=== PATIENT | female | born 1985 | race American Indian/Alaskan Native ===

== ENCOUNTER 2017-11-01 05:59 | Emergency (ER) | payer BC, OTHER ==
[2017-11-01 05:59] VITALS: BMI 23.6
[2017-11-01 06:06] VITALS: PULSE 81
--- NOTE | 2017-11-01 07:28 | ED PDOC ---
Arrival/HPI - General Chief Complaint: ENT Problem Time Seen by Provider: 11/01/17 07:11 Historian: Patient - History of Present Illness Narrative History of Present Illness (Text): 11/01/17 07:12 Zoe Mendez is a 32 year old female, with no significant past medical history, who presents to the Emergency department complaining of a sore throat for past 4 days. Patient notes she was gargling last night and noticed puss at back of throat. Patient denies any associated symptoms or sick contacts. Patient denies any fevers, chills, chest pain, shortness of breath, abdominal pain, nausea, vomiting, diarrhea, back pain, neck pain, urinary symptoms, headache, dizziness , or any other complaint. Time/Duration: Other (last 4 days) Symptom Onset: Gradual Symptom Course: Unchanged Activities at Onset: Light Context: Home Past Medical History - Provider Review Nursing Documentation Reviewed: Yes - Infectious Disease Hx of Infectious Diseases: None - Tetanus Immunization Tetanus Immunization: Unknown - Cardiac Hx Cardiac Disorders: Yes Hx Heart Murmur: Yes - Pulmonary Hx Respiratory Disorders: No - Musculoskeletal/Rheumatological Hx Musculoskeletal Disorders: No - Gastrointestinal Hx Gastrointestinal Disorders: No - Genitourinary/Gynecological Hx Genitourinary Disorders: No - Psychiatric Hx Psychophysiologic Disorder: No Hx Substance Use: No - Anesthesia Hx Anesthesia Reactions: No - Suicidal Assessment Feels Threatened In Home Enviroment: No Family/Social History - Physician Review Nursing Documentation Reviewed: Yes Family/Social History: Unknown Family HX Smoking Status: Never Smoked Hx Alcohol Use: Yes Hx Substance Use: No Hx Substance Use Treatment: No Allergies/Home Meds Allergies/Adverse Reactions: Allergies No Known Allergies Allergy (Verified 07/09/14 11:27) Review of Systems - Physician Review All systems were reviewed & negative as marked: Yes - Review of Systems Constitutional: Normal. absent: Fevers Eyes: Normal ENT: Sore Throat (noticed swelling in back of throat last night). absent: Normal Respiratory: Normal. absent: SOB, Cough Cardiovascular: Normal. absent: Chest Pain Gastrointestinal: Normal. absent: Abdominal Pain, Stool Changes, Constipation, Diarrhea, Nausea, Vomiting Genitourinary Female: Normal. absent: Urine Output Changes, Vaginal Discharge Musculoskeletal: Normal. absent: Arthralgias, Back Pain, Neck Pain, Myalgias Skin: Normal. absent: Rash Neurological: Normal. absent: Headache, Dizziness Endocrine: Normal. absent: Diaphoresis Hemo/Lymphatic: Normal Psychiatric: Normal Physical Exam Vital Signs Reviewed: Yes Vital Signs Temp Pulse Resp BP Pulse Ox 11/01/17 07:34 98 F 81 18 120/71 99 11/01/17 06:06 98.3 F 81 16 117/72 100 Temperature: Afebrile Blood Pressure: Normal Pulse: Regular Respiratory Rate: Normal Appearance: Positive for: Well-Appearing, Non-Toxic Pain Distress: None Mental Status: Positive for: Alert and Oriented X 3 - Systems Exam Head: Present: Atraumatic, Normocephalic Pupils: Present: PERRL Extroacular Muscles: Present: EOMI Conjunctiva: Present: Normal Pharnyx: Present: ERYTHEMA (back of throat), EXUDATE (exudates at back of throat ), Other (some swollen glands in back of neck). No: Normal Neck: Present: Normal Range of Motion Respiratory/Chest: Present: Clear to Auscultation, Good Air Exchange. No: Respiratory Distress, Accessory Muscle Use Cardiovascular: Present: Regular Rate and Rhythm, Normal S1, S2. No: Murmurs Abdomen: No: Tenderness, Distention, Peritoneal Signs Upper Extremity: Present: Normal Inspection. No: Cyanosis, Edema Lower Extremity: Present: Normal Inspection. No: Edema Neurological: Present: GCS=15, CN II-XII Intact, Speech Normal Skin: Present: Warm, Dry, Normal Color. No: Rashes Psychiatric: Present: Alert, Oriented x 3, Normal Insight, Normal Concentration Medical Decision Making ED Course and Treatment: 11/01/17 07:13 Impression: Zoe Mendez is a 32 year old female who presents to the Emergency department for sore throat for last 4 days, after noticing puss at back of throat last night. Plan: -- Amoxicillin -- Throat culture -- Rapid strep group a antigen -- Reassess and disposition Prior Visits: Notes and results from previous visits were reviewed. Progress Notes: 11/01/17 07:13 Additional instructions: Patient to follow up with PMD as directed. - Lab Interpretations Lab Results: Lab Results 11/01/17 06:30: Grp A Beta Strep Ag Negative - Scribe Statement The provider has reviewed the documentation as recorded by the Scribe Marcie Bartholomew All medical record entries made by the Scribe were at my direction and personally dictated by me. I have reviewed the chart and agree that the record accurately reflects my personal performance of the history, physical exam, medical decision making, and the department course for this patient. I have also personally directed, reviewed, and agree with the discharge instructions and disposition. Disposition/Present on Arrival - Present on Arrival Any Indicators Present on Arrival: No History of DVT/PE: No History of Uncontrolled Diabetes: No Urinary Catheter: No History of Decub. Ulcer: No History Surgical Site Infection Following: None - Disposition Have Diagnosis and Disposition been Completed?: Yes Diagnosis: Exudative pharyngitis, Cervical adenitis Disposition: HOME/ ROUTINE Disposition Time: 09:10 Patient Plan: Discharge Condition: GOOD Discharge Instructions (ExitCare): Sore Throat, Adult (DC) Additional Instructions: Zoe - Go ahead and start the medication as soon as you get it. You will need 48 hours of Amoxicillin before you are no longer contagious. [6 doses] Return to us if worse. Follow up with your regular doctor. Tylenol for fever, Motrin for pain. Best- Dr. Bienvenido Alas Prescriptions: Amoxicillin 500 mg PO TID #30 tablet Referrals: PCP,NO [Primary Care Provider] - Follow up with primary Forms: [facility] (Al[place]ian), SCHOOL NOTE, WORK NOTE
[2017-11-01 07:35] VITALS: BP 120/71; RESP 18; TEMP 98; O2SAT 99
== END 2017-11-01 07:34 | disposition home or self-care (01) ==
LOC: ED 05:59
DX: J02.9 Acute pharyngitis, unspecified (principal); I88.9 Nonspecific lymphadenitis, unspecified